=== PATIENT | female | born 1950 | race African-American/Black ===

== ENCOUNTER 2024-09-14 16:20 | Emergency (ER) | payer MEDICARE, MEDICAID ==
[~2024-09-14] VITALS: Ht 157.5 cm; Wt 63.6 kg
[2024-09-14 16:48] VITALS: TEMP 98.6
[2024-09-14 20:00] VITALS: BP 123/71; PULSE 92; RESP 17; O2SAT 94
[2024-09-14] MEDS: IBUPROFEN 400 MG TABLET PO ONE (20:21)
[2024-09-14] MEDS: ACETAMINOPHEN 500 MG TABLET PO ONE (20:21)
[2024-09-14] MEDS ORDERED: ACET-3385 PO (20:45)
== END 2024-09-14 21:30 | disposition home or self-care (01) ==
LOC: EMS 16:20
DX: S82.831A Other fracture of upper and lower end of right fibula, initial encounter for closed fracture (principal); J43.9 Emphysema, unspecified; E11.9 Type 2 diabetes mellitus without complications; E78.00 Pure hypercholesterolemia, unspecified; Z88.1 Allergy status to other antibiotic agents; Z88.2 Allergy status to sulfonamides; X50.9XXA Other and unspecified overexertion or strenuous movements or postures, initial encounter; Y93.89 Activity, other specified; Y92.89 Other specified places as the place of occurrence of the external cause; Y99.8 Other external cause status
CPT/HCPCS: 29515; 82962; 99283